=== PATIENT | female | born 1975 | race Two or more races ===

== ENCOUNTER 2021-06-16 14:00 | Inpatient (IN) | payer OTHER ==
[~2021-06-16] VITALS: Ht 152.4 cm; Wt 85.7 kg
[2021-06-16 14:40] LABS: Basophils # (auto) 0 10 ^3/uL (0-0.2); Basophils % (auto) 0.5 % (0.0-2.0); Eosinophils # (auto) 0 10 ^3/uL (0-0.8); Eosinophils % (auto) 0.6 % (0.0-7.0); Hemoglobin 15.7 g/dL (12.2-16.2); Lymphocytes # (auto) 2.3 10 ^3/uL (0.4-5.4); Lymphocytes % (auto) 30.2 % (10.0-50.0); Mean Corpuscular Hemoglobin 31.9 pg (28.0-32.0); Mean Corpuscular Hgb Conc. 34.2 g/dL (32.0-36.0); Mean Corpuscular Volume 93.4 fL (80.0-100.0); Monocytes # (auto) 0.5 10 ^3/uL (0-1.3); Neutrophils # (auto) 4.6 10 ^3/uL (1.6-8.6); Neutrophils % (auto) 61.7 % (37.0-80.0); Nucleated Red Blood Cells % 0.2 %; Red Blood Cells 4.93 10^6/uL (4.0-5.20); Red Cell Distribution Width 14.1 % (11.8-14.3); White Blood Cell 7.5 10^3/uL (4.4-10.8)
[2021-06-16 14:49] LABS: Albumin 3.2 g/dL (3.4-5.0); Calcium 8.5 mg/dL (8.5-10.1); Potassium 4.2 mmol/L (3.5-5.1)
[2021-06-16 14:54] LABS: BUN/Creatinine Ratio 20.5; Bilirubin, Total 0.7 mg/dL (0.2-1.0); Total Protein 7.1 g/dL (6.4-8.2)
[2021-06-16] MEDS ORDERED: IOHEXOL 350 MG/ML 100ML IJ ONE ×2 (15:41→16:36)
[2021-06-16] MEDS ORDERED: MORPHINE SULFATE INJECTION 2 MG/ML SYRG IV PRN (20:45)
[2021-06-16] MEDS ORDERED: NITROGLYCERIN 0.4 MG SL TAB SL PRN (20:45)
[2021-06-16] MEDS ORDERED: TEMAZEPAM 15 MG CAP PO PRN (20:45)
[2021-06-16] MEDS ORDERED: ACETAMINOPHEN 325 MG TAB PO PRN (20:45)
[2021-06-16] MEDS ORDERED: ONDANSETRON HCL 4 MG/2 ML VIAL IV PRN (20:45)
[2021-06-16] MEDS: ATORVASTATIN 20 MG TAB PO SCH (22:00)
[2021-06-16 22:14] VITALS: BP 138/100
[2021-06-17] MEDS ORDERED: METO25TA5 PO (00:26)
[2021-06-17] MEDS ORDERED: BUPR150T8 PO (00:26)
[2021-06-17] MEDS ORDERED: SPIR25TA8 PO (00:26)
[2021-06-17] MEDS ORDERED: FURO1TAB31 PO (00:26)
[2021-06-17] MEDS ORDERED: CARV3.1240 PO (00:26)
[2021-06-17 00:31] VITALS: BP 135/100
[2021-06-17] MEDS ORDERED: FUROSEMIDE 20 MG/2 ML VIAL IV ONE (03:00)
[2021-06-17 04:38] LABS: Calcium 8.3 mg/dL (8.5-10.1); Potassium 3.4 mmol/L (3.5-5.1)
[2021-06-17 04:39] LABS: Basophils # (auto) 0 10 ^3/uL (0-0.2); Basophils % (auto) 0.5 % (0.0-2.0); Eosinophils # (auto) 0.1 10 ^3/uL (0-0.8); Hematocrit 41.9 % (36.0-46.0); Hemoglobin 14.1 g/dL (12.2-16.2); Lymphocytes # (auto) 2.3 10 ^3/uL (0.4-5.4); Lymphocytes % (auto) 33.8 % (10.0-50.0); Mean Corpuscular Hemoglobin 31.3 pg (28.0-32.0); Mean Corpuscular Hgb Conc. 33.7 g/dL (32.0-36.0); Monocytes # (auto) 0.4 10 ^3/uL (0-1.3); Monocytes % (auto) 6.2 % (0.0-12.0); Neutrophils % (auto) 58.5 % (37.0-80.0); Nucleated Red Blood Cells % 0.2 %; Red Cell Distribution Width 14.3 % (11.8-14.3); White Blood Cell 6.8 10^3/uL (4.4-10.8)
[2021-06-17 04:43] LABS: BUN/Creatinine Ratio 20.3
[2021-06-17 04:57] VITALS: BP 133/90
[2021-06-17 08:32] VITALS: BP 144/97
[2021-06-17] MEDS: LISINOPRIL 10 MG TAB PO SCH (09:15)
[2021-06-17] MEDS: ENOXAPARIN SOD 40 MG/0.4 ML SYRINGE SC SCH (09:15)
[2021-06-17] MEDS ORDERED: ASPirin 81 mg TAB PO SCH (10:00)
[2021-06-17] MEDS ORDERED: FUROSEMIDE 40 MG TAB PO SCH (10:00)
[2021-06-17 12:54] VITALS: BP 117/86
[2021-06-17 13:31] LABS: Urine Bacteria FEW /hpf (None Seen); Urine Blood Negative /uL (Negative); Urine Specific Gravity 1.009 (1.001-1.035); Urine WBC 4 /hpf (0 - 5)
[2021-06-17 13:37] LABS: Amphetamine Screen, Urine POSITIVE (NEGATIVE); Barbiturate Scree,Urine NEGATIVE (NEGATIVE); Benzodiazephine Screen, Urine NEGATIVE (NEGATIVE); Cannabinoid Screen, Urine NEGATIVE (NEGATIVE); Cocaine Screen, Urine NEGATIVE (NEGATIVE); Phencyclidine Screen, Urine NEGATIVE (NEGATIVE)
[2021-06-17 13:43] LABS: Opiate Scree,Urine NEGATIVE (NEGATIVE)
[2021-06-17] MEDS ORDERED: POTASSIUM CHL 20 Meq TABLET PO ONE (14:30)
[2021-06-17 16:47] VITALS: BP 111/73
[2021-06-17] MEDS: FUROSEMIDE 40 MG/4 ML VIAL IV SCH (18:05)
[2021-06-17 22:00] VITALS: BP 124/89
[2021-06-17] MEDS: ATORVASTATIN 20 MG TAB PO SCH (23:27)
[2021-06-17] MEDS: CARVEDILOL 3.125 MG TAB PO SCH (23:27)
[2021-06-18 05:00] VITALS: BP 104/56
[2021-06-18] MEDS: FUROSEMIDE 40 MG/4 ML VIAL IV SCH (06:26)
[2021-06-18 09:00] VITALS: BP 107/73
[2021-06-18] MEDS ORDERED: FURO1TAB31 PO (09:57)
[2021-06-18] MEDS ORDERED: METO25TA5 PO (09:57)
[2021-06-18] MEDS ORDERED: BUPR150T8 PO (09:57)
[2021-06-18] MEDS ORDERED: ASPirin 81 mg TAB PO SCH (10:00)
[2021-06-18] MEDS ORDERED: POTASSIUM CHL 20 Meq TABLET PO SCH (10:00)
[2021-06-18] MEDS ORDERED: DAPAGLIFLOZIN 5 MG TAB PO SCH (10:00)
[2021-06-18] MEDS: LISINOPRIL 10 MG TAB PO SCH (10:00)
[2021-06-18] MEDS: CARVEDILOL 3.125 MG TAB PO SCH (10:04)
[2021-06-18] MEDS: ENOXAPARIN SOD 40 MG/0.4 ML SYRINGE SC SCH (10:04)
[2021-06-18 13:00] VITALS: BP 103/67
[2021-06-18] MEDS ORDERED: LISI20TA28 PO (14:01)
[2021-06-18] MEDS ORDERED: CARV6.25 PO (14:01)
[2021-06-18 15:00] LABS: Calcium 8.6 mg/dL (8.5-10.1); Potassium 3.8 mmol/L (3.5-5.1)
[2021-06-18 15:37] VITALS: BP 103/64
== END 2021-06-18 16:36 | disposition home or self-care (01) | DRG 280 ==
LOC: ER 14:00 → TELE 20:44 → TELE-EAST 22:14
PROVIDERS: ADMIT Nurse Practitioner; ATTEND Internal Medicine
DX: I11.0 Hypertensive heart disease with heart failure (principal); I21.A1 Myocardial infarction type 2; I50.43 Acute on chronic combined systolic (congestive) and diastolic (congestive) heart failure; I42.7 Cardiomyopathy due to drug and external agent; E66.01 Morbid (severe) obesity due to excess calories; E87.6 Hypokalemia; F10.10 Alcohol abuse, uncomplicated; F15.90 Other stimulant use, unspecified, uncomplicated; F17.210 Nicotine dependence, cigarettes, uncomplicated; Z20.822 Contact with and (suspected) exposure to COVID-19; F32.A Depression, unspecified; F19.10 Other psychoactive substance abuse, uncomplicated; I50.810 Right heart failure, unspecified; F41.9 Anxiety disorder, unspecified; Z90.49 Acquired absence of other specified parts of digestive tract; Z71.41 Alcohol abuse counseling and surveillance of alcoholic; Z83.3 Family history of diabetes mellitus; Z91.19 Patient's noncompliance with other medical treatment and regimen
CPT/HCPCS: 36415; 71046; 71275; 80048; 80053; 80307; 81001; 83880; 84484; 85025; 85379; 87426; 93005; 93306; 96374; G0378

== ENCOUNTER 2021-09-21 05:03 | Emergency (ER) | payer SELFPAY ==
[~2021-09-21] VITALS: Ht 144.8 cm; Wt 81.6 kg
[2021-09-21 05:03] VITALS: BP 136/94
[~2021-09-21 05:03] MED LIST: BUPR150T8 PO; CARV6.25 PO; FURO1TAB31 PO
[2021-09-21 07:51] LABS: Urine Bacteria FEW /hpf (None Seen); Urine Blood 2+ /uL (Negative); Urine Mucus FEW (None Seen); Urine Specific Gravity 1.022 (1.001-1.035); Urine WBC 53 /hpf (0 - 5)
== END 2021-09-21 08:42 | disposition left against medical advice (07) ==
LOC: ER 05:03
DX: R06.02 Shortness of breath (principal); I11.0 Hypertensive heart disease with heart failure; I50.9 Heart failure, unspecified; F17.210 Nicotine dependence, cigarettes, uncomplicated; Z90.49 Acquired absence of other specified parts of digestive tract
CPT/HCPCS: 81001; 93005